=== PATIENT | female | born 1960 | race Caucasian/White ===

== ENCOUNTER → 2018-10-04 | Day surgery (SDC) | payer SELFPAY ==
[~2018-10-04] MED LIST: AMITRIPTYLINE H25 MG PO; FENTANYL CITRATE/PF 100MCG/2 ML INJ ONE; HYOSCYAMINE SULFATE 0.5 MG/ML INJ ONE; LORAZEPAM1 MG PO; LOSARTAN POTAS100 MG PO; METOCLOPRAMIDE HCL 10 MG/2ML VIAL ONE; MIDAZOLAM HCL 2 MG/2 ML VIAL ONE; PANTOPRAZOLE SO40 MG PO; PROPOFOL IV EMULSION 10 MG/ML 50 ML VIAL ONE
[2018-10-04 10:20] VITALS: BP 128/69
--- NOTE | 2018-10-04 17:33 | Operative Report ---
DATE OF PROCEDURE: 10/04/2018 SURGEON: Joao Reeves MD PROCEDURE: Colonoscopy and polypectomy. INDICATIONS FOR COLONOSCOPY: Colorectal cancer screening. MEDICATION: The patient was done under MAC, please see anesthesiologist's note. PROCEDURE IN DETAIL: With the patient in left lateral decubitus position, flexible fiberoptic Olympus colonoscope was inserted into the rectum with ease and advanced all the way to the cecum. Mucosa overlying the cecum appeared to be within normal limits. One polyp was snared from the cecum. An approximately 5 mm sessile lesion was noted in the proximal ascending colon just under a fold and that was biopsied. There was a prominent fold noted in the distal ascending colon that was biopsied and tattooed. One polyp was hot biopsied from the proximal transverse colon. Some scattered diverticular disease was noted. The descending and sigmoid grossly appeared to be within normal limits. One minute polyp was hot biopsied from the rectum. The scope was then retroflexed into the distal rectum and small internal hemorrhoids were noted, none of which was actively bleeding. The scope was then straightened out, it was subsequently withdrawn. The patient tolerated procedure well. IMPRESSION: 1. Cecal polyp, snared. 2. Approximately 5 mm sessile lesion in proximal ascending colon, biopsied. 3. Prominent fold distal ascending colon, biopsied and tattooed. 4. Proximal transverse colon polyp approximately 5 mm in size, hot biopsied. 5. Diverticulosis, scattered. 6. Rectal polyp, minute, hot biopsied. 7. Internal hemorrhoids, none actively bleeding. PLAN: Timing of followup colonoscopy pending pathology report. Joao Reeves MD [facility] [place]/JOSE MIGUEL /[id number] cc: Alexy Reeves MD
== END | disposition home or self-care (01) ==
LOC: OR 06:30
PROVIDERS: ATTEND Internal Medicine Gastroenterology
DX: Z12.11 Encounter for screening for malignant neoplasm of colon (principal); D12.0 Benign neoplasm of cecum; K62.1 Rectal polyp; K63.89 Other specified diseases of intestine; K57.30 Diverticulosis of large intestine without perforation or abscess without bleeding; K64.8 Other hemorrhoids; K63.9 Disease of intestine, unspecified; K21.9 Gastro-esophageal reflux disease without esophagitis; R94.5 Abnormal results of liver function studies; F32.9 Major depressive disorder, single episode, unspecified; F41.9 Anxiety disorder, unspecified; I10 Essential (primary) hypertension; Z88.1 Allergy status to other antibiotic agents; Z88.0 Allergy status to penicillin; Z01.810 Encounter for preprocedural cardiovascular examination; Z68.34 Body mass index [BMI] 34.0-34.9, adult
CPT/HCPCS: 45380; 45381; 45384; 45385; 93005; J1980; J2250; J2704; J2765; 45378